=== PATIENT | male | born 1955 | race Caucasian/White ===

== ENCOUNTER → 2019-11-14 | Outpatient (CLI) | payer OTHER ==
[~2019-11-14] MED LIST: ACETAMINOPHEN325 M1 PO; MULTIVITAMINS PO
== END ==
LOC: SJCVCIMAG 07:25
PROVIDERS: ATTEND Internal Medicine
DX: R07.9 Chest pain, unspecified (principal); I10 Essential (primary) hypertension; E78.5 Hyperlipidemia, unspecified